=== PATIENT | male | born 1980 | race Caucasian/White ===

== ENCOUNTER 2022-04-09 14:54 | Emergency (ER) | payer MEDICAID, SELFPAY ==
[2022-04-09 15:19] VITALS: BP 144/94; PULSE 88; RESP 14; TEMP 36.7; O2SAT 98; BMI 27.5
--- NOTE | 2022-04-09 17:03 | EX.ED.VIS.PS ---
HPI HPI - Psych History of Present Illness Chief Complaint: Mental Health Informant: patient Narrative Narrative: History of bipolar disorder presented by private vehicle for assistance. He states he lost his 7 years ago. He has a 17-year-old son. He states his son for the last 6 months living with girlfriend has not seen him. He is dealing with CPS. He states he was homeless a year ago with his son. He has been trying to get a job. Stress throughout. 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 Denies alcohol or other recreational drugs. He applied for a job today for interview, failed a drug screen. He spoke with CPS today with his son, he spoke with his symptoms and depression, they agree that he should be evaluated. He denies any suicidal or homicidal ideations. Admits to increasing depression. He states he self admitted to [facility] 6 months ago. He was on 5 or 6 medications for his bipolar he cannot recall them. He has not taken them in a while. Denies any auditory or visual loose [place]. Prior similar symptoms: Yes PFSH PFSH Allergy/AdvReac Type Severity Reaction Status Date / Time No Known Allergies Allergy Verified 04/09/22 14:56 Social History Smoking Status: Current every day smoker tobacco type: cigarettes ROS ROS ED Constitutional Constitutional ED: Denies chills, fever(s) or sweats Eyes Eyes: Denies change in vision ENT ENT ED: Denies dysphagia or sore throat Cardiovascular Cardiovascular: Denies chest pain, leg edema, palpitations or racing heartbeat Respiratory/Chest Respiratory/Chest: Denies cough, dyspnea or dyspnea on exertion Gastrointestinal Gastrointestinal: Denies abdominal pain, diarrhea, nausea or vomiting Genitourinary Genitourinary ED: Denies dysuria, hematuria or urinary frequency Musculoskeletal Musculoskeletal: Denies back pain, extremity pain or neck pain Integumentary Denies rash or wounds Neurologic Neurologic: Denies headache(s), paresthesias or weakness Psychiatric Psychiatric: Reports depression; Denies suicidal ideation or suicidal thoughts EXAM Physical Exam Const Vital Signs: 04/09/22 15:19 Temperature 98.1 F Temperature Source Temporal Pulse Rate 88 Respiratory Rate 14 Blood Pressure 144/94 H Blood Pressure Mean 110 Pulse Ox 98 Oxygen Delivery Method Room Air Positive well nourished and well developed General Appearance ED: well developed and NAD HEENT Reports moist mucous membranes normocephalic and atraumatic Eyes PERRL, EOMs intact bilaterally and conjunctivae normal General Eye ED: Yes normal appearance of both eyes Neck no lymphadenopathy and supple General: Negative for tenderness Chest Wall Chest: Negative for tenderness Resp normal respiratory effort and normal air movement Effort and Inspection: symmetric chest movement; Negative for respiratory distress Cardio regular rate, regular rhythm and no murmurs Peripheral Pulses: pulses 2+ throughout GI normal to inspection, nondistended, normoactive bowel sounds and non-tender Palpation: Negative for guarding or rebound tenderness present Back/Spine no CVA tenderness and no thoracic nor lumbar tenderness Extremity normal to inspection General Extremety ED: Negative for edema or tenderness General Extremity: Negative for edema Neuro oriented x3 and no sensory deficits noted Sensorium / Orientation: awake and alert Psych Psych Narrative: Depressed, flat affect, cooperative Skin no rashes or lesions noted and no wounds MDM MDM MDM Narrative Medical decision making narrative: Interventions / MDM: Differential diagnosis: Bipolar with depression Diagnosis considered but do not suspect: N/A My EKG interpretation: N/A Imaging independently reviewed and interpreted by myself: N/A External documents reviewed: N/A Test considered but not ordered:N/A ED course: Patient denies any medical complaints. History of bipolar, with his stress concern for increasing depression. Medical clearance labs will be obtained. I did speak with case management. I do feel he will benefit from inpatient management with severe depression and bipolar history. Labs negative, toxicology screen negative. Alcohol negative. Patient is been cooperative. He is medically cleared. 2054: Patient accepted to [facility] to Dr. Toussaint. [place] slip filled out per request of accepting facility. Re-evaluation: stable Disposition discussed with patient/family/significant other: Case discussed with consulting clinician: machine worker in the ED Lab Data Attestation: I reviewed the patient's lab results. Labs: Laboratory Results - last 24 hr 04/09/22 04/09/22 04/09/22 17:16 17:16 17:16 WBC 12.2 H RBC 4.30 L Hgb 13.6 Hct 40.4 MCV 94.0 MCH 31.6 MCHC 33.7 RDW Std Deviation 44.4 H RDW Coeff of Rachel 13.0 Plt Count 347 MPV 8.8 Immature Gran % (Auto) 0.500 Neut % (Auto) 69.3 Lymph % (Auto) 24.7 [place] % (Auto) 2.7 Eos % (Auto) 2.5 Baso % (Auto) 0.3 Absolute Neuts (auto) 8.4 H Absolute Lymphs (auto) 3.00 Nucleated RBC % 0 Sodium 141 Potassium 4.0 Chloride 106 Carbon Dioxide 29.0 Anion Gap 6 BUN 8 Creatinine 0.91 Estim Creat Clear Calc 110.33 Est GFR (MDRD) Af Amer 117 Est GFR (MDRD) Non-Af 96 BUN/Creatinine Ratio 8.8 L Glucose 159 H Calcium 9.1 Urine Opiates Screen Urine Methadone Screen Ur Barbiturates Screen Ur Phencyclidine Scrn Ur Amphetamines Screen MDMA (Ecstasy) Screen U Benzodiazepines Scrn Urine Cocaine Screen U Cannabinoids Screen Ur Drug Screen Comment Ethyl Alcohol < 3.0 04/09/22 17:16 WBC RBC Hgb Hct MCV MCH MCHC RDW Std Deviation RDW Coeff of Rachel Plt Count MPV Immature Gran % (Auto) Neut % (Auto) Lymph % (Auto) [place] % (Auto) Eos % (Auto) Baso % (Auto) Absolute Neuts (auto) Absolute Lymphs (auto) Nucleated RBC % Sodium Potassium Chloride Carbon Dioxide Anion Gap BUN Creatinine Estim Creat Clear Calc Est GFR (MDRD) Af Amer Est GFR (MDRD) Non-Af BUN/Creatinine Ratio Glucose Calcium Urine Opiates Screen NEGATIVE Urine Methadone Screen NEGATIVE Ur Barbiturates Screen NEGATIVE Ur Phencyclidine Scrn NEGATIVE Ur Amphetamines Screen NEGATIVE MDMA (Ecstasy) Screen NEGATIVE U Benzodiazepines Scrn NEGATIVE Urine Cocaine Screen NEGATIVE U Cannabinoids Screen NEGATIVE Ur Drug Screen Comment Ethyl Alcohol Discharge Plan Triage Chief Complaint: Mental Health ED Provider: Av Olivarez Dx/Rx/DC Orders Clinical Impression: Severe depression, Hx of bipolar disorder Primary Care Provider: Care Physician,No Primary Disposition Disposition: Psychiatric Hospital or Unit
[2022-04-09 17:32] LABS: Absolute Neutrophil Count 8.4 X10^3/uL (2.0-7.7); Basophil# 0.04 X10^3/uL; Basophil% 0.3 % (0-1); Eosinophil# 0.31 X10^3/uL; Eosinophils% 2.5 % (0-5); Hematocrit 40.4 % (40-54); Hemoglobin 13.6 g/dL (13.0-16.5); Lymphocyte % 24.7 % (19-41); Mean Corp Hgb Conc 33.7 g/dL (32-36); Mean Corpuscular Hgb 31.6 pg (27.0-32.0); Mean Platelet Vol. 8.8 fl (6.2-12.0); Monocyte# 0.33 X10^3/uL; Monocyte% 2.7 % (0-10); NRBC Flagged by Analyzer 0 % (0-5); Neutrophil # 8.43 X10^3/uL (2.7-7.7); Neutrophil % 69.3 % (47-70); Platelet Count 347 K/mm3 (150-450); RBC Distribution Width SD 44.4 fl (35.1-43.9); White Blood Count 12.2 K/mm3 (4.4-11.0)
[2022-04-09 17:38] LABS: Anion Gap 6 (5-15); BUN 8 mg/dL (7-18); BUN/Creat Ratio 8.8 RATIO (10-20); Calcium,Total 9.1 mg/dL (8.5-10.1); Chloride 106 mmol/L (98-107); Creatinine, Serum 0.91 mg/dL (0.70-1.30); EST Glomerular Filtration Rate 96 mL/min (>60); Est Glom Filt Rate - Afr Amer 117 mL/min (>60); Estimated Creatinine Clearance 110.33 ml/min; Glucose 159 mg/dL (74-106); Sodium Level 141 mmol/L (136-145)
[2022-04-09 18:30] LABS: Alcohol, Blood (Medical)-Serum < 3.0 mg/dL
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
--- NOTE | 2022-04-09 18:48 | ED.RN ---
Pt. requested to go outside to have a cigarette. This RN told patient that he was not allowed to go out and smoke and come back but that patient is not pink slipped so if he needed to go smoke he would have to check back in as a patient. Pt. said he would not and a nicotine patch has been ordered.
[2022-04-09 18:53] LABS: Amphetamine Urine VISTA NEGATIVE (<1000 ng/mL); Barbiturate Urine VISTA NEGATIVE (< 200 ng/mL); Benzodiazepine Urine VISTA NEGATIVE (< 200 ng/mL); Cocaine Urine VISTA NEGATIVE (< 300 ng/mL); Ecstacy Urine VISTA NEGATIVE (< 500 ng/mL); Methadone Urine VISTA NEGATIVE (< 300 ng/mL); PCP Urine VISTA NEGATIVE (< 25 ng/mL); THC Urine VISTA NEGATIVE (< 50 ng/mL); Vista UDS pH Range 5
--- NOTE | 2022-04-09 19:39 | CM.ED ---
Addendum entered by Valentina Milligan 04/09/22 21:06: Patient was declined by [facility]. Patient accepted by [facility], however, a pink slip is needed as patient's insurance will not cover his stay without pink slip due to patient not being high risk for suicide otherwise. Accepting information is: Dr. Toussaint, [address], [address] [phone] and ask for [facility]. SW informed MD of acceptance and assisted MD in completely pink slip. SW informed RN patient was accepted. executive secretary states patient can not be transported until tomorrow morning. SW informed patient of his acceptance to [facility] and explained the pink slip was needed for his stay. Patient voiced understanding and in agreement with placement. Patient was informed he wouldn't be transported until the morning. Patient asked SW about stepping outside due to being hot. SW explained he was unable to leave the hospital at this time and encouraged him to wear the hospital gown as he was still fully dressed in multiple layers. Patient voiced he is willing to change into a gown. pink slip faxed to [facility] RN informed of patient's needs. Plan: [facility] in the morning. Valentina Milligan CERAMIC CAPACITOR PROCESSOR, SEARCH ENGINE OPTIMIZATION ANALYST Original Note: NELLY Note SW contacted [facility] to inquire about bed availability. [facility] admissions staff explained they do have beds available, however, they only have one staff reviewing referrals so they might not be able to get to the referral for a while. SW inquired about accepting patients not under pink slip, admissions staff stated they would need to send voluntary forms to be completed prior to transport. SW faxed referral. NELLY contacted [facility] to inquire about bed availability and was informed there were beds available. SW inquired about patient wanting to go voluntarily, admissions staff explained they would need patient to complete voluntary paperwork prior to be transferred. Referral faxed to [facility]. NELLY contacted [facility] to inquire about bed availability, admissions staff states they do have available beds, however, the patient would have to be pink slipped in order to go to their facility. SW contacted [facility] to inquire about bed availability, admissions staff stated they are not accepting any more patients tonight but a referral could be sent for review for admissions for tomorrow. SW attempted to contact [facility], however, after a few rings the phone went silent. SW attempted to call again and had the same issue. SW contacted [facility] to inquire about bed availability and was informed there were beds available. SW inquired about patient being able to go voluntarily, admissions staff stated patient would need a pink slip in order to transport him but the patient could sign voluntary forms when he arrived. Admissions staff encouraged SW to send referral so she could further review. SW faxed referral. Referrals sent to [facility], [facility] and [facility]. Plan: inpatient psych pending acceptance from facility RASHMI Cee
[2022-04-10 00:44] VITALS: BP 138/69; PULSE 85; RESP 18; TEMP 36.7; O2SAT 98
[2022-04-10 00:47] VITALS: BP 138/69; PULSE 85; RESP 18; O2SAT 98
[2022-04-10 02:16] VITALS: RESP 16
[2022-04-10 04:15] VITALS: RESP 18
[2022-04-10 06:01] VITALS: PULSE 86; RESP 18; O2SAT 96
[2022-04-10 08:18] VITALS: BP 144/88; PULSE 81; RESP 16; O2SAT 98
--- NOTE | 2022-04-16 11:43 | CM.ED ---
SW Note [facility] inquiring about [facility]'s placement as she had encouraged the patient to present to an ED for evaluation. NELLY explained he was transferred to [facility] and provided a phone number for their facility. Valentina EDWARDS, RASHMI
== END 2022-04-10 08:19 ==
PROVIDERS: Emergency Provider Emergency Medicine; Visit Provider Emergency Medicine
DX: F31.9 Bipolar disorder, unspecified (principal); F17.210 Nicotine dependence, cigarettes, uncomplicated
CPT/HCPCS: 80048; 80307; 82077; 85025; 87811; 99283

== ENCOUNTER 2022-05-25 02:10 | Emergency (ER) | payer MEDICAID, SELFPAY ==
[2022-05-25 02:11] VITALS: BP 132/101; PULSE 117; RESP 18; TEMP 37.3; O2SAT 100; BMI 26.6
--- NOTE | 2022-05-25 02:26 | EX.ED.VIS.PS ---
HPI HPI - Psych History of Present Illness Chief Complaint: Anxiety Narrative Narrative: 42-year-old male past medical history of depression and anxiety presents with panic attack that has been happening over the last hour and a half. He states that he is lost everything including his home in [place]. He has a son that he does not talk to. He states that his former is . He has been living in a homeless senior living for the last 3 weeks. He recently started a new job and everything was going well until he looked at pictures. He denies any suicidal ideation, but became tearful and would not stop crying. He takes buspirone for his depression and he states he sees [facility], although he does not have problems with addiction. He sees to see the psychiatric counselor. PFSH PFSH Allergy/AdvReac Type Severity Reaction Status Date / Time No Known Allergies Allergy Verified 04/09/22 14:56 Social History Smoking Status: Current every day smoker tobacco type: cigarettes ROS ROS ED ROS Narrative Constitutional: No fever, no chills. HEENT: No sore throat. No neck pain. No loss of vision. No rhinorrhea. Cardiovascular: No chest pain. No palpitations. No pedal edema. Respiratory: No cough, no shortness of breath. Abdominal: No abdominal pain. No nausea. No vomiting. Genitourinary: No dysuria. No hematuria. Musculoskeletal: No myalgias. No arthralgias. Neurologic: No headaches. No dizziness. No lightheadedness. Skin: No rash. No change in color. Psychiatric: No depression. Positive anxiety. Having a panic attack. Tearful. EXAM Physical Exam Narrative Exam Narrative: Afebrile. Vital signs noted. HEENT: Normocephalic. Atraumatic. PERRL, EOMI. Neck soft and supple. No point tenderness or step off. Cardiovascular: Regular rate and rhythm. No murmurs, rubs, or gallops appreciated. Respiratory: No tachypnea. Lungs clear to auscultation bilaterally. Gastrointestinal: Abdomen soft, nontender, with normoactive bowel sounds. No rebound or guarding. Neurological: Awake. Alert. Nonfocal, nonlateralizing. Skin: No rash. Normal color. No pallor. Musculoskeletal: No pedal edema. Full range of motion extremities. Psychiatric: Positive anxiety. Denies suicidal ideation. Denies hallucinations. Denies homicidal ideation. Const Vital Signs: 05/25/22 02:11 05/25/22 03:52 Temperature 99.1 F Temperature Source Temporal Pulse Rate 117 H Respiratory Rate 18 18 Blood Pressure 132/101 H Blood Pressure Mean 111 Pulse Ox 100 Oxygen Delivery Method Room Air MDM MDM MDM Narrative Medical decision making narrative: In speaking with the patient, he also takes trazodone to help him sleep, but does not like taking it because it makes him groggy the next day. I would refrain from using benzodiazepines currently because of the way it makes him feel. He was given 50 mg of Vistaril orally. We will feel laboratory work needs to be obtained because he just states that he is having a panic attack and needs to calm down. He denies any chest pain or shortness of breath, no palpitations. The only reason I would entertain getting laboratory work is for medical clearance to speak with crisis. However, he does not really need placement because he is not homicidal or suicidal. He will be reevaluated after his Vistaril, and after he is given time to calm down. Upon repeat examination at approximately 3:45 in the morning, he is standing and feels improved. He would like to be discharged back to the senior living. I feel he can be discharged safely home with follow-up. He will follow-up with his counselor at [facility]. He is no longer hyperventilating or tearful. He wants to go to work and is feeling hopeful. Disposition is discharged in stable condition. Discharge Plan Triage Chief Complaint: Anxiety ED Provider: Raffi Gamboa Dx/Rx/DC Orders Clinical Impression: Anxiety, Panic attack Instructions: ED Anxiety Reaction, ED Panic Attack Primary Care Provider: Care Physician,No Primary Referrals: Care Physician,No Primary [Primary Care Provider] - Activity Restrictions/Additional Instructions: Follow-up with your counselor at [facility]. Continue your medications as previously directed. Disposition Disposition: Home, Self Care Discharge Date/Time: 05/25/22 03:53
[2022-05-25] MEDS: hydrOXYzine PAM 25 MG Capsule 50 MG PO (02:32)
[2022-05-25 03:52] VITALS: RESP 18
== END 2022-05-25 03:53 | disposition home or self-care (01) ==
PROVIDERS: Emergency Provider Emergency Medicine; Visit Provider Emergency Medicine
DX: F41.0 Panic disorder [episodic paroxysmal anxiety] (principal); F32.A Depression, unspecified; F17.210 Nicotine dependence, cigarettes, uncomplicated; Z59.01 Sheltered homelessness; Z79.899 Other long term (current) drug therapy
CPT/HCPCS: 99284

== ENCOUNTER 2022-06-09 19:54 | Emergency (ER) | payer MEDICAID, SELFPAY ==
[2022-06-09 19:55] VITALS: BP 120/76; PULSE 101; RESP 18; TEMP 36.1; O2SAT 97; BMI 26.8
--- NOTE | 2022-06-09 21:57 | EDS_ITS ---
HPI History of Present Illness Chief Complaint: Edema Narrative Narrative: 42-year-old male extremity edema and pain. He states this in the right calf and right ankle. Denies any trauma. He has some slight redness and warmth he notes. No history of DVT/PE and no risk factors. Patient states he was seen in [place] last night and had a DVT study of the right lower extremity which was negative. He tells me that they did not tell him what his diagnosis was. I did state it could possibly be early cellulitis. I did not start him on any antibiotics. Patient denies any systemic signs or symptoms. Denies fevers or chills. Patient has no history of MRSA or cellulitis. PFSH PFS Medical History Hypertension Home Medications cephalexin 500 mg capsule 500 mg PO Q6 #40 CAPSULES 06/09/22 [Rx Last Taken Unknown] naproxen 500 mg tablet (Naprosyn) 500 mg PO BID PRN pain #20 tabs 06/09/22 [Rx Last Taken Unknown] Allergy/AdvReac Type Severity Reaction Status Date / Time No Known Allergies Allergy Verified 06/09/22 19:54 Social History Smoking Status: Current every day smoker tobacco type: cigarettes ROS ROS ED Review of Systems ROS Unobtainable: Denies due to encephalopathy Constitutional Constitutional ED: Denies fever(s) or subjective Eyes Eyes: Denies change in vision or diplopia ENT ENT ED: Denies rhinorrhea or sore throat Cardiovascular Cardiovascular: Denies chest pain or palpitations Respiratory/Chest Respiratory/Chest: Denies cough, dyspnea or dyspnea on exertion Gastrointestinal Gastrointestinal: Denies abdominal pain or nausea Genitourinary Genitourinary ED: Denies dysuria or hematuria Integumentary Reports rash Neurologic Neurologic: Denies headache(s) or paresthesias Psychiatric Psychiatric: Denies anxiety or depression EXAM Physical Exam Const Vital Signs: 06/09/22 19:55 06/09/22 21:01 Temperature 97.0 F L Temperature Source Temporal Pulse Rate 101 H Respiratory Rate 18 Respiratory Pattern Normal Blood Pressure 120/76 Blood Pressure Mean 90 Pulse Ox 97 Oxygen Delivery Method Room Air Positive well nourished General Appearance ED: NAD HEENT Reports moist mucous membranes normocephalic and atraumatic Resp normal respiratory effort Cardio regular rate and regular rhythm Extremity Extremity Narrative: Right foot: Tenderness palpation, mild warmth, mild erythema over the right tibial region extending into the right ankle. Ankle joint with full 10. No evidence of septic joint. No cords palpated. No crepitance. Right foot neurovascular intact with a brisk cap refill to all 5 toes on the right foot Neuro oriented x3 and CN's II-XII intact bilaterally Sensorium / Orientation: alert Motor Exam: strength 5/5 throughout Psych mental status grossly normal Skin Skin Narrative: As described above MDM MDM MDM Narrative Medical decision making narrative: Patient presenting with some cellulitic change on the right ankle and right tibial region. No systemic signs or symptoms. Patient had a negative DVT study yesterday. I do not believe he needs a repeat. After long discussion we decided to treat this as cellulitis and started on Keflex in the ER. Prescription was provided. He is given a prescription for Naprosyn. He is to monitor this and return if any new or worsening symptoms. Impression: 1. Right lower extremity psych Discharge Plan Triage Chief Complaint: Edema ED Provider: Filiberto Shay Dx/Rx/DC Orders Instructions: ED Cellulitis Prescriptions: New naproxen [Naprosyn] 500 mg tablet 500 mg PO BID PRN (Reason: pain) Qty: 20 0RF cephalexin 500 mg capsule 500 mg PO Q6 Qty: 40 0RF Primary Care Provider: Mayuri Cummings NP Referrals: Mayuri Cummings NP, [facility] [Primary Care Provider] - Disposition Disposition: Home, Self Care
[2022-06-09] MEDS: Cephalexin 250 MG Capsule 500 MG PO (22:05)
== END 2022-06-09 22:38 | disposition home or self-care (01) ==
LOC: ED 22:04
PROVIDERS: Emergency Provider Student in an Organized Health Care Education/Training Program; PCP Nurse Practitioner Family; Visit Provider Student in an Organized Health Care Education/Training Program
DX: L03.115 Cellulitis of right lower limb (principal); F17.210 Nicotine dependence, cigarettes, uncomplicated
CPT/HCPCS: 99283